=== PATIENT | male | born 1945 | race Caucasian/White ===

== ENCOUNTER 2017-11-11 19:54 | Emergency (ER) | payer OTHER, MEDICARE ==
[~2017-11-11] VITALS: Ht 170.2 cm; Wt 126.6 kg
[~2017-11-11 19:54] MED LIST: ADVAIR DISKUS 21 DSK INH; ALLOPURINOL300 M1 PO; ASPIR 8181 MG PO; ASPIRIN EC81 M1 PO; AUGMENTIN 875-1 EACH PO; AZITHROMYCIN250 M1 PO; BUMETANIDE1 MG PO; BUMETANIDE2 M1 PO; BYDUREON2 MG SC; CALCIUM500 M1 PO; CARVEDILOL6.25 MG PO; CO Q-10100 MG PO; COLACE100 MG PO; COREG6.25 M1 PO; CRESTOR 10MG10 MG PO; CRESTOR10 MG PO; CYCLOBENZAPRINE10 M1 PO; CYMBALTA60 MG PO; DIGOXIN0.125 MG PO; DILAUDID2 M1 PO; DILAUDID4 M1 PO; DOFETILIDE250 MCG PO; DOXYCYCLINE MON50 M2 PO; DOXYCYCLINE50 MG PO; EFFEXOR XR150 MG PO; ELIQUIS5 M1 PO; FERROUS SULFAT325 M3 PO; GABAPENTIN300 M2 PO; GLIPIZIDE5 M1 PO; HYDROXYZINE HCL25 M2 PO; HYDROXYZINE HCL25 MG PO; LANTUS SOL100 UNIT/1 SC; LANTUS SOLOS100 U/ML SC; LISINOPRIL2.5 MG PO; LYRICA75 M1 PO; LYRICA75 MG PO; MAGNESIUM OXID400 MG PO; MAGNESIUM400 M1 PO; METANX 2.8 MG-21 TAB PO; MIRTAZAPINE15 MG PO; MONTELUKAST SOD10 M1 PO; NAPROXEN375 M2 PO; NOVOLOG FL100 UNIT/1 SC; NOVOLOG FLEX100 U/ML SC; PANTOPRAZOLE SO40 M1 PO; PRINIVIL 5MG5 MG PO; PROAIR HFA0.09 MG/Ac INH; PROTONIX 40MG T40 MG PO; SINGULAIR 5 MG T5 MG PO; SINGULAIR10 M1 PO; SINGULAIR10 MG PO; SYMBICORT 160/41 PUF INH; SYMBICORT 16010.2 GM INH; TESSALON PERLE100 M1 PO; TESSALON PERLE100 MG PO; VALIUM2 M1 PO; VENTOLIN H0.09 MG/Ac INH; VITAMIN B COMP1 EACH PO; VITAMIN B COMPL1 CAP PO; VITAMIN D250000 UNIT PO; VITAMIN D50000 I1 PO; VITAMIN D50000 IU PO; ZOCOR10 M1 PO; ZOLOFT25 MG PO
[2017-11-11 20:04] VITALS: BP 126/81
--- NOTE | 2017-11-11 20:07 | ED NOSE COMPLAINT ---
History of Present Illness General Chief Complaint: Epistaxis/Nasal Foreign Body Stated Complaint: "ROMAINE REMOVAL" Source: patient Exam Limitations: no limitations Vital Signs & Intake/Output Vital Signs & Intake/Output Vital Signs Date Time Temp Pulse Resp B/P B/P Pulse O2 O2 Flow FiO2 Mean Ox Delivery Rate 11/11 2003 95.0 89 18 126/81 95 Room Air Allergies Coded Allergies: Iodinated Contrast- Oral and IV Dye (IODINATED CONTRAST MEDIA - IV DYE) (HIVES ITCH ALL OVER 08/21/16) adhesive tape (RASH 08/21/16) benzonatate (SHAKES 08/21/16) codeine (HALLUCINATIONS 08/21/16) erythromycin base (From Erythrocin) (HIVES 08/21/16) iodine (TOPICAL ONLY CAN NOT RECEIVE INTERNALLY 08/21/16) thiopental ("TRIED TO JUMP OUT WINDOW" 08/21/16) oxycodone (Intermediate, CONFUSION 08/21/16) Reconcile Medications Allopurinol 300 MG TABLET 1 TAB PO QAM GOUT (Reported) Amoxicillin/Potassium Clav (Augmentin 875-125 Tablet) 875 MG-125 MG TABLET 1 TAB PO BID infection prevention Apixaban (Eliquis) 5 MG TABLET 1 TAB PO BID BLOOD THINNER (Reported) Aspirin (Ecotrin*) 81 MG TABLET.DR 1 TAB PO DAILY HEART/BLOOD (Reported) Azithromycin 250 MG TABLET 1 DP PO AD bronchitis 2 the first day followed by 1 for days 2-5 Budesonide/Formoterol Fumarate (Symbicort 160-4.5 Mcg Inhaler) 160 MCG-4.5 MCG/ ACTUATION HFA.AER.AD 2 PUF INH BID ASTHMA (Reported) Bumetanide 2 MG TABLET 1 TAB PO QAM DIURETIC (Reported) Calcium Carbonate (Calcium) 500 MG TABLET 1 TAB PO QAM SUPPLEMENT (Reported) Carvedilol (Coreg) 6.25 MG TABLET 1.5 TAB PO BID HEART (Reported) Dofetilide 250 MCG CAPSULE 1 CAP PO BID HEART (Reported) Doxycycline Monohydrate 50 MG TABLET 1 TAB PO QPM SUPPLEMENT (Reported) Ergocalciferol (Vitamin D2) (Vitamin D2) 50,000 UNIT CAPSULE 1 CAP PO Q30D SUPPLEMENT - ON A SUN (Reported) Ferrous Sulfate 325 MG TABLET 1 TAB PO QAM SUPPLEMENT (Reported) Gabapentin 300 MG CAPSULE 1 TAB PO BEDTIME RESTLESS LEG (Reported) Hydroxyzine Hydrochloride (Atarax) 25 MG TABLET 1 TAB PO QPM ITCH (Reported) Insulin Aspart, Recombinant (Novolog Flexpen) 100 UNIT/ML INSULN.PEN DM ( Reported) Insulin Glargine,Hum.rec.anlog (Lantus Solostar) 100 UNIT/1 ML INSULN.PEN 15 UNIT SC BID DM (Reported) Magnesium Oxide (Magnesium) 400 MG CAPSULE 800 MG PO QAM SUPPLEMENT (Reported ) Montelukast Sodium 10 MG TABLET 1 TAB PO QPM ASTHMA (Reported) Pantoprazole Sodium 40 MG TABLET.DR 1 TAB PO QPM GI (Reported) Pregabalin (Lyrica) 75 MG CAPSULE 1 CAP PO QPM NERVE PAIN (Reported) Simvastatin (Zocor*) 10 MG TABLET 1 TAB PO SUNWED SUPPLEMENT (Reported) Ubidecarenone (Co Q-10) 100 MG CAPSULE 1 CAP PO SUNWED SUPPLEMENT (Reported) Vitamin B Complex 1 EACH CAPSULE 1 CAP PO QAM SUPPLEMENT (Reported) Triage Note: PT FROM HOME C/O REMOVAL OF RHINO ROCKET THAT WAS PLACED ON SUNDAY. DR THOMAS IN TRIAGE TO REMOVE RHINO ROCKET, PT WILL WAIT IN WAITING ROOM FOR 20 MINS AND WILL BE CHECKED ON PER DR THOMAS. PTS VSS. PT IS ON ELAQ. Triage Nurses Notes Reviewed? yes Onset: Gradual Duration: day(s): Timing: recent history Injury Environment: home Severity: mild Modifying Factors: Improves With: rest. Associated Symptoms: no recurrent bleeding HPI: 71 yo gentleman presented 3 days ago with bleeding from left nare. He received a nasal sponge. He ntotes that he has had no recurrent bleeding with the nasal sponge. He is otherwise well. Past History Travel History Traveled to [place] past 21 day No Medical History Any Pertinent Medical History? 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 , Age 84; Cause: Respiratory failure. GRANDFATHER, , Age 95; Cause: Stroke. GRANDMOTHER, ; Cause: Cancer. MOTHER ([place]). , Age 94; Cause: Dementia. Hx Contributory? No Review of Systems Review of Systems Constitutional: Reports: no symptoms. EENTM: Reports: no symptoms. Respiratory: Reports: no symptoms. Cardiovascular: Reports: no symptoms. GI: Reports: no symptoms. Genitourinary: Reports: no symptoms. Musculoskeletal: Reports: no symptoms. Skin: Reports: no symptoms. Neurological/Psychological: Reports: no symptoms. Hematologic/Endocrine: Reports: no symptoms. Immunologic/Allergic: Reports: no symptoms. All Other Systems: Reviewed and Negative Physical Exam Physical Exam General Appearance: well developed/nourished, mild distress Head: atraumatic Eyes: Bilateral: normal appearance. Nose: left nare with nasal sponge intact. no significant bleeding Mouth/Throat: normal mouth inspection, pharynx normal Neck: normal inspection, supple Cardiovascular/Respiratory: normal breath sounds, regular rate/rhythm Back: normal inspection Neurologic/Psych: awake, alert, oriented x 3, normal mood/affect Skin: intact, normal color, warm/dry Progress Differential Diagnoses I considered the following diagnoses in my evaluation of the patient: epistaxis vs other. Plan of Care: nasal sponge removed without problem. Initial ED EKG: none Departure Departure Disposition: HOME OR SELF CARE Condition: Stable Clinical Impression Primary Impression: Epistaxis Referrals: Funmilayo HAN,Talib Duff (PCP/Family) Departure Forms: Customer Survey General Discharge Information Comments 11/11/17, 20:05... nasal sponge removed... no active bleeding. 11/11/17, 20:37... no bleeding... pt feels safe for discharge... pt referred to ENT.
== END 2017-11-11 20:44 ==
LOC: ERH 19:54
DX: R04.0 Epistaxis (principal)
CPT/HCPCS: 99282; J1885